=== PATIENT | female | born 1950 | race Caucasian/White ===

== ENCOUNTER 2016-09-11 13:42 | Inpatient (IN) | payer OTHER ==
[~2016-09-11] VITALS: Ht 165.1 cm; Wt 55.2 kg
--- NOTE | ~2016-09-11 | H ---
[facility] [place] [address] HISTORY AND PHYSICAL Name: DAYANARA ROBERTS Room #: 206-P [facility] IN M.R.#: [id number] Admission: 09/11/16 Attend Phys: Kody Ace MD, Discharge: 09/12/16 Date of : 46 Report #: [id number] THIS REPORT FOR: //name// CC: Kody Mccormick DO PATIENT LOCATION: [place] [address]. HISTORY OF PRESENT ILLNESS: The patient is a 66-year-old female, who is known to myself and followed by Dr. Bahman Mccormick. She has had some recurrent chest pain and pressure and had a significant event approximately 3 weeks ago, which awoke her from sleep, band-like discomfort. Cold, clammy and short of breath. She has continued to have the intermittent cold, clammy, shortness of breath with exertion. Unfortunately, it was not real prompt on her getting evaluated. Also, marked decrease in exercise tolerance. She is usually very viable, independent and does a lot of exertional activity, but can do nothing she states. EKG is sinus rhythm, right bundle with T-wave inversions. She has a history of moderate 3-vessel coronary disease from a catheterization 5 years ago in 2011. No prior interventions. She has had a history of stroke, COPD. Generally half a pack a day. She is compliant with her medications, but this is a marked change in her exercise tolerance and this anginal equivalent I perceive. Occasionally has had some of these episodes at rest. I am inclined to admit her. MEDICATIONS: Her current medications have been clonidine 0.1 at night, levothyroxine, ranitidine, sublingual nitroglycerin, lisinopril 20, Xanax 0.25 t.i.d. p.r.n., amlodipine 10, citalopram 10, Bystolic 20, ProAir, Symbicort and Singulair. PAST MEDICAL HISTORY: Positive for coronary artery disease, CVA, hypertension, allergic rhinitis, COPD, DJD, some anxiety and depression issues. SOCIAL HISTORY: Her is institutionalized. She is accompanied by her daughter. Minimal tobacco. No alcohol use. She has had 3 children, one daughter in a car accident. ALLERGIES: CODEINE. FAMILY HISTORY: Positive including a brother and father with premature coronary artery disease. REVIEW OF SYSTEMS: Negative, except for some occasional constipation issues and arthritis pain. PHYSICAL EXAMINATION: VITAL SIGNS: Blood pressure 126/84, pulse 70s. [facility] [address] [place] [address] HISTORY AND PHYSICAL Name: DAYANARA ROBERTS Room #: [address] [place] [address] [place] ..#: [id number] Admission: 09/11/16 Attend Phys: Kody Ace MD, Discharge: 09/12/16 Date of : 46 Report #: [id number] HEENT: Eyes reveal xanthelasmas. Pharynx is clear. NECK: Shows preserved upstrokes, without JVD or bruits. LUNGS: Prolonged expiratory phase, but clear. CARDIAC EXAMINATION: Regular rate and rhythm. S1, S2, without murmur or gallop. ABDOMEN: Soft, nontender. EXTREMITIES: Reveal diminished pulses, but intact. NEUROLOGIC: Nonfocal. SKIN: Warm and dry, without xanthoma or ulcer. MUSCULOSKELETAL: Generalized arthritic changes. ASSESSMENT: 1. Coronary artery disease/accelerating angina. 2. Hypertension. 3. Hypercholesterolemia. 4. Chronic obstructive pulmonary disease, continued tobacco use. 5. History of cerebrovascular accident. 6. Strong family history of premature coronary artery disease. RECOMMENDATIONS AND PLAN: We will continue her regimen. We will obtain stat labs, CCU. Nitro paste if there are recurrent symptoms. Troponin, chemistry, CBC, EKG and proceed to the catheterization lab in the a.m. to delineate the anatomy. Risks, benefits and alternatives were discussed with the patient and her daughter. We will directly admit her to the CCU. This patient is going to the CCU at [facility]. Thank you for asking me to assist in the care of this patient. <ELECTRONICALLY SIGNED> By: Kody Ace MD, FACC 09/15/16 1229 1305 1431 Kody Ace MD, FACC /nt
--- NOTE | ~2016-09-11 | EKG ---
[address] [address] ELECTROCARDIOGRAM REPORT Name: DAYANARA ROBERTS Room #: [address] [place] [address] [place] ..#: [id number] Admission: 09/11/16 Attend Phys: Kody Ace MD, Discharge: 09/12/16 Date of : 46 Report #: [id number] THIS REPORT FOR: //name// [facility] Test Date: 2016-09-11 Test Time: 17:32:13 Pat Name: DAYANARA ROBERTS Department: Room: [facility] Gender: F Dry Man: Raffi JOHNSTON : 1950 Requested By: Kody Ace Order Number: [id number] MD: Malvin Almanza Measurements Intervals [place] Rate: 76 P: 40 [place]: 148 QRS: 1 QRSD: 87 T: 20 QT: 392 QTc: 441 Interpretive Statements Sinus rhythm Nonspecific ST segment abnormality Compared to ECG 08/27/2012 13:20:14 No significant changes Electronically Signed On 09-14-2016 15:28:16 CDT by Malvin Almanza [email or web address] <ELECTRONICALLY SIGNED> By: Malvin Almanza MD, [facility] 09/14/16 1528 1732 1732 Malvin Almanza MD, [facility] /EPI
--- NOTE | ~2016-09-11 | D ---
[facility] [place] [address] DISCHARGE SUMMARY Name: DAYANARA ROBERTS Room #: 206-P [facility] IN M.R.#: [id number] Admission: 09/11/16 Attend Phys: Kody Ace MD, Discharge: 09/12/16 Date of : 46 Report #: [id number] THIS REPORT FOR: //name// CC: Kody Ace [facility] COURSE: The patient is a 66-year-old female who was admitted with anginal type symptoms. Subsequently, ruled out for infarcts and taken to the catheterization lab. Dr. Merida my partner performed a cardiac catheterization. She does have moderate 3-vessel coronary artery disease. There is an ostial LAD lesion of the 70% range. Just off of the left main. We are going to opt to treat this currently with medical therapy, but will need at some point looking for significant ischemia in the anterior distribution nuclear stress testing. She has had longstanding refractory hypertension, but finally have a fairly good control on the current blood pressure with 20 mg of Bystolic, 10 mg of amlodipine, clonidine 0.[address] Merida added 30 mg of Imdur daily. An aspirin and statin, lisinopril 20 mg. No lifting for 48 hours and lying in [facility] for a week. She is on Celexa and p.r.n. Xanax. She will follow up with Dr. Mccormick as scheduled. I will see her in 2 months. I will consider at some point here in the next few months nuclear stress testing and looking for evidence of ischemia, particularly if we continue to have recurrent chest pain. She does also have mildly severe right coronary artery disease and significant proximal calcification of this coronary vasculature. If we need to revascularize, I suspect this would be by bypass surgery, due to the extensive nature of the disease and the calcification. She will call with any recurrent chest pain symptoms. DISCHARGE DIAGNOSES: 1. Coronary artery disease. 2. Refractory hypertension. 3. Hypercholesterolemia. 4. History of mild COPD with tobacco use. As always, smoking cessation strongly recommended. We will discuss the above with Dr. Mccormick in addition. Thank you for asking me to assist care of this patient. <ELECTRONICALLY SIGNED> By: Kody Ace MD, FACC 09/15/16 1229 170 22 Kody Ace MD, FACC /nt
--- NOTE | ~2016-09-11 | CATHLAB ---
[facility] [place] [address] INVASIVE PROCEDURE REPORT Name: ALEJANDRADAYANARA F Room #: 206-P [facility]#: [id number] Admission: 09/11/16 Attend Phys: Kody Ace, Discharge: 09/12/16 Date of : 46 Date of Service: 09/12/16 1020 Report #: [id number] THIS REPORT FOR: //name// CC: Kody Mccormick CARDIAC CATHETERIZATION REPORT DATE OF SERVICE: 09/12/2016. INDICATIONS: Unstable angina. Full risks, benefits and alternatives of cardiac catheterization were explained to the patient. All questions were answered. Informed consent was obtained. The right groin area was prepped and draped in a sterile manner. Lidocaine was given subcutaneously. A 4-[place] sheath was inserted into the right femoral artery via modified Seldinger technique. CORONARY ANATOMY: The left main artery is a large caliber vessel, with no flow-limiting lesions. There is a moderately severe stenosis in the ostium of the LAD, a 60-70%. After this area, the proximal LAD is heavily calcified. The mid segment of the LAD has mild diffuse disease, 30%. The left circumflex artery branches off into 1 moderate size obtuse marginal artery. There is a moderate stenosis in the obtuse marginal artery, 50%. The RCA is a dominant vessel, heavily calcified in the proximal and mid segments. The mid segment of the RCA has a moderately severe stenosis, 60-70%. The PDA and posterolateral branches have no flow-limiting lesions. A left ventriculogram was performed in the LOBATO projection revealing normal LV systolic function, ejection fraction of 60%. The LVEDP is approximately 15 mmHg. There is no gradient across the outflow tract. IMPRESSION: 1. Moderately severe disease in the LAD and RCA. Recommend medical therapy at this time. 2. Normal LV systolic function. 3. Right dominant system. <ELECTRONICALLY SIGNED> By: Ian Merida MD 09/15/16 0833 1020 1251 Ian Merida MD /nt
[~2016-09-11 13:42] MED LIST: ACIDOPHILUS1 EAC3 PO; ADVAIR HFA115 MCG/21 INH; ALAVERT10 MG PO; ASPIRIN81 M2 PO; BYSTOLIC10 MG PO; CELEXA 10 MG TA10 M1 PO; CLONIDINE0.1 PO; FIBER0.52 G1 PO; LEVOXYL100 MCG PO; LISINOPRIL20 MG PO; METRONIDAZOLE500 M4 PO; NITROGLYCERIN0.4 MG SUBLING; NORVASC 5 MG TAB5 MG PO; POTASSIUM20 PO; PRENATAL COMPL1 EACH PO; PROAIR HFA8.5 GM INH; RANITIDINE 150150 M1 PO; SYMBICORT160 MCG/4. INH; XANAX 0.25 MG0.25 MG PO
[2016-09-11 14:45] VITALS: BP 133/81
[2016-09-11 14:55] LABS: HEMATOCRIT 31.5 % (37.0-47.0); HEMOGLOBIN 10.5 gm/dL (12.0-15.0); MCH 28.4 pg (26.0-34.0); MCHC 33.3 g/dL (28.0-37.0); MCV 85.2 fL (80.0-100.0); RBC 3.7 mil/uL (4.20-5.00); RDW 16.8 % (10.5-14.5); WBC 7.1 thou/uL (4.0-11.0)
[2016-09-11 15:11] LABS: ALBUMIN 3.6 g/dL (3.4-5.0); ALKALINE PHOSPHATASE 38 U/L (46-116); ANION GAP 7 mmol/L (7-16); BUN 12 mg/dL (7-18); CALCIUM 9.2 mg/dL (8.5-10.1); CHLORIDE 107 mmol/L (98-107); CO2 24 mmol/L (21-32); CREATININE 0.8 mg/dL (0.6-1.0); GLUCOSE 86 mg/dL (74-106); POTASSIUM 3.9 mmol/L (3.5-5.1); SGOT 18 U/L (15-37); SGPT 21 U/L (30-65); SODIUM 138 mmol/L (136-145); TOTAL BILIRUBIN 0.3 mg/dL (<0.1-1.0); TOTAL PROTEIN 6.6 g/dL (6.4-8.2); TROPONIN-I < 0.04 ng/mL (<0.04-0.07)
[2016-09-11 19:45] VITALS: BP 142/81
[2016-09-11 23:51] VITALS: BP 134/84
[2016-09-12] VITALS (11 sets, daily range): BP systolic 137–170; BP diastolic 84–100
[2016-09-12 05:19] LABS: APTT 24.7 Seconds (24.5-32.8); PROTIME 10.5 Seconds (9.3-11.4)
[2016-09-12] MEDS ORDERED: BYSTOLIC10 MG PO (16:59)
[2016-09-12] MEDS ORDERED: IMDUR 30 MG TAB30 M1 PO (16:59)
== END 2016-09-12 19:40 | disposition home or self-care (01) | DRG 287 ==
LOC: 2N 13:42
PROVIDERS: Internal Medicine Cardiovascular Disease
PROC: B2111ZZ Fluoroscopy of Multiple Coronary Arteries using Low Osmolar Contrast (ICD-10-PCS; principal; 2016-09-12)
PROC: 4A023N7 Measurement of Cardiac Sampling and Pressure, Left Heart, Percutaneous Approach (ICD-10-PCS; principal; 2016-09-12)
PROC: B2151ZZ Fluoroscopy of Left Heart using Low Osmolar Contrast (ICD-10-PCS; principal; 2016-09-12)
DX: I25.119 Atherosclerotic heart disease of native coronary artery with unspecified angina pectoris (principal); I10 Essential (primary) hypertension; E78.00 Pure hypercholesterolemia, unspecified; J44.9 Chronic obstructive pulmonary disease, unspecified; M19.90 Unspecified osteoarthritis, unspecified site; F41.9 Anxiety disorder, unspecified; F32.9 Major depressive disorder, single episode, unspecified; Z88.6 Allergy status to analgesic agent; Z86.73 Personal history of transient ischemic attack (TIA), and cerebral infarction without residual deficits; Z79.899 Other long term (current) drug therapy; Z72.0 Tobacco use; Z82.49 Family history of ischemic heart disease and other diseases of the circulatory system
CPT/HCPCS: 10797